=== PATIENT | male | born 1990 | race Caucasian/White ===

== ENCOUNTER 2016-10-13 19:32 | Emergency (ER) | payer OTHER | END 2016-10-13 21:35 | disposition home or self-care (01) | LOC: ER1 19:32 | DX: S61.512A Laceration without foreign body of left wrist, initial encounter (principal); W25.XXXA Contact with sharp glass, initial encounter; Y92.009 Unspecified place in unspecified non-institutional (private) residence as the place of occurrence of the external cause; Z23 Encounter for immunization | CPT/HCPCS: 12002; 73110; 90471; 90715; 99283 ==